=== PATIENT | female | born 1985 | race Caucasian/White ===

== ENCOUNTER 2017-08-30 08:48 | Emergency (ER) | payer MEDICAID ==
[~2017-08-30] VITALS: Ht 172.7 cm; Wt 82.0 kg
[2017-08-30 08:59] VITALS: BP 120/80
[2017-08-30] MEDS ORDERED: OMEP-110 PO (09:45)
[2017-08-30] MEDS ORDERED: ONDA4TAB10 PO (09:45)
[2017-08-30] MEDS ORDERED: PREN-3 PO (09:45)
[2017-08-30] MEDS ORDERED: IBUPROFEN 200 MG TABLET PO ONE (10:00)
[2017-08-30] MEDS ORDERED: ALBUTEROL SULFATE 2.5 MG/3 ML NPPB ONE (10:00)
[2017-08-30] MEDS ORDERED: ALBUTEROL SULFATE 2.5 MG/3 ML ONE (10:01)
[2017-08-30] MEDS ORDERED: IBUPROFEN 200 MG TABLET ONE (10:07)
== END 2017-08-30 10:18 | disposition home or self-care (01) ==
LOC: ED 10:00
DX: O99.512 Diseases of the respiratory system complicating pregnancy, second trimester (principal); J20.8 Acute bronchitis due to other specified organisms; B96.89 Other specified bacterial agents as the cause of diseases classified elsewhere; Z3A.18 18 weeks gestation of pregnancy
CPT/HCPCS: 93005; 94640; 99283; J7613

== ENCOUNTER 2017-10-08 16:44 | Outpatient (CLI) | payer MEDICAID ==
[~2017-10-08] VITALS: Ht 172.7 cm; Wt 81.8 kg
[~2017-10-08 16:44] MED LIST: OMEP-110 PO; ONDA4TAB10 PO; PREN-3 PO
[2017-10-08 16:47] VITALS: BP 132/66
== END 2017-10-08 17:15 | disposition home or self-care (01) ==
LOC: LDOP 16:44
PROVIDERS: ATTEND Student in an Organized Health Care Education/Training Program
DX: O21.8 Other vomiting complicating pregnancy (principal); K92.0 Hematemesis; Z3A.23 23 weeks gestation of pregnancy
CPT/HCPCS: 59025; 99211; G0463

== ENCOUNTER 2017-10-08 17:02 | Emergency (ER) | payer MEDICAID ==
[~2017-10-08] VITALS: Ht 172.7 cm; Wt 81.8 kg
[2017-10-08 17:05] VITALS: BP 126/84
== END 2017-10-08 17:41 | disposition left against medical advice (07) ==
LOC: ED 17:35
DX: Z53.21 Procedure and treatment not carried out due to patient leaving prior to being seen by health care provider (principal)